=== PATIENT | female | born 1965 | race Caucasian/White ===

== ENCOUNTER 2017-09-17 08:34 | Day surgery (SDC) | payer OTHER ==
[2017-09-17] MEDS ORDERED: MIDAZOLAM 1 MG/ML 2 ML INJ (10:04)
[2017-09-17] MEDS ORDERED: FENTAnyl 50 MCG/ML VIAL (10:04)
== END 2017-09-17 10:12 | disposition home or self-care (01) ==
LOC: GIL 08:34
DX: Z12.11 Encounter for screening for malignant neoplasm of colon (principal); I10 Essential (primary) hypertension
CPT/HCPCS: 45378